=== PATIENT | female | born 1930 | race Caucasian/White ===

== ENCOUNTER 2016-06-22 17:41 | Inpatient (IN) | payer MEDICARE, MEDICAID ==
[~2016-06-22] VITALS: Ht 147.3 cm; Wt 63.5 kg
[~2016-06-22 17:41] MED LIST: ALPR0.5T8 PO; ASPI-605 PO; ATOR10TA PO; CLON0.1T PO; Cephalexin Monohydrate PO; DOCU-170 PO; GABA-532 PO; GLIM2TAB2 PO; HYDR-552 PO; LORA0.5T PO; METF10002 PO; MIRT15TA PO; MULT1TAB64 PO; PANT40TA2 PO; POLY30DR OP; SENN8.6T6 PO; SERT50TA PO; TRAM50TA2 PO
[2016-06-22] MEDS ORDERED: LANTUS INSULIN SQ (17:59)
[2016-06-22] MEDS ORDERED: GUAI5SYR PO (17:59)
[2016-06-22] MEDS ORDERED: AMLO5TAB4 PO (17:59)
[2016-06-22] MEDS ORDERED: LACT1CAP61 PO (17:59)
[2016-06-22] MEDS ORDERED: AMIN30LI27 PO (17:59)
[2016-06-22] MEDS ORDERED: NITROGLYCERIN OINT 1 GM PACKET TP ONE ×2 (18:00→18:14)
[2016-06-22 18:30] LABS: CALCIUM 9.6 mg/dL (8.5-10.1); CREATININE 0.9 mg/dL (0.6-1.3)
--- NOTE | 2016-06-22 18:34 | NUR ---
A/O x 4, vss, nad at this time; report given to BRAYDON Chou, pt to transfer to Tele unit.
[2016-06-22 18:41] LABS: ALBUMIN 3.4 g/dL (3.4-5.0); BILIRUBIN,DIRECT 0.1 mg/dL (0.0-0.2); BILIRUBIN,TOTAL 0.5 mg/dL (0.2-1.0); TOTAL PROTEIN, SERUM 6.8 g/dL (6.4-8.2)
[2016-06-22 18:42] LABS: TROPONIN I 0.024 ng/mL (0.00-0.056)
--- NOTE | 2016-06-22 18:44 | NUR ---
Pt. admitted to 211, under care of Dr. Lo Belongs List completed. MRSA swab done, sent to the lab.
--- NOTE | 2016-06-22 18:54 | NUR ---
NEW ADMISSION TO ROOM 211. PATIENT ALERT, AWAKE AND ORIENTED IN NO ACUTE DISTRESS. VSS. NO C/O PAIN AT THIS TIME. WILL ENDORSE TO NEXT SHIFT RN.
[2016-06-22 18:56] VITALS: BP 125/81
[2016-06-22 18:58] LABS: LACTIC ACID 3.2 mmol/L (0.4-2.0)
[2016-06-22 19:00] VITALS: BP 118/74
--- NOTE | 2016-06-22 19:00 | NUR ---
PATIENT ADMITTED FROM ER UNDER THE CARE OF DR. FERRARO, WITH DX OF CHF, PATIENT ALERT, AWAKE, SPEACK CHINESE, BODY CHECK DONE, SKIN CLEAR, PATIENT ON TELE, SINUS RYTHM WITH BUNDLE BLOCK, NO SOB, NO CHEST PAIN. CONT TO MONITOR.
--- NOTE | 2016-06-22 19:00 | NUR ---
LACTIC ACID 3.2 ENDORSED TO MELQUIADES BRYSON AND GONZALO BRYSON.
[2016-06-22 19:12] LABS: WHITE BLOOD COUNT (AUTO) 5.9 K/uL (4.0-11.2)
[2016-06-22 19:13] LABS: HEMATOCRIT 38.3 % (37.0-47.0); HEMOGLOBIN 12.6 g/dL (12.0-16.0); LYMPHOCYTES % (AUTO) 23.4 % (20.5-51.5); MEAN CORPUSCULAR HEMOGLOBIN 26.1 uug (27.0-31.0); MEAN CORPUSCULAR HGB CONC 33 g/dL (32.0-37.0); MEAN CORPUSCULAR VOLUME 79.6 fL (81.0-99.0); MONOCYTES % (AUTO) 8.9 % (0.0-11.0); NEUTROPHILS % (AUTO) 65.7 % (38.5-71.5); PLATELET COUNT (AUTO) 210 K/uL (150-450); RED BLOOD CELL COUNT(AUTO) 4.81 MIL/uL (4.20-5.40)
[2016-06-22 19:14] LABS: BASOPHILS % (AUTO) 0.6 % (0.0-2.0); EOSINOPHILS # (AUTO) 0.1 K/uL (0.0-0.7); EOSINOPHILS % (AUTO) 1.4 % (0.0-7.0); LYMPHOCYTES # (AUTO) 1.4 K/uL (0.8-4.8); MONOCYTES # (AUTO) 0.5 K/uL (0.1-1.30); NEUTROPHILS # (AUTO) 3.9 K/uL (1.8-8.9)
--- NOTE | 2016-06-22 19:30 | NUR ---
PATIENT LACTIC ACID 3.2 DR GILLIAM NOTFIED WITH ORDERS. NOTIFY THAT PATIENT WAS ADMITTED.
[2016-06-22] MEDS ORDERED: POLYVINYL ALCOHOL OPHT DROPS 15 ML BOTTLE EACHEYE PRN (20:15)
[2016-06-22] MEDS ORDERED: LORAZEPAM 0.5 MG TABLET PO PRN (20:15)
[2016-06-22] MEDS ORDERED: CLONIDINE HCL 0.1 MG TABLET PO PRN (20:15)
[2016-06-22] MEDS ORDERED: GUAIFENESIN/DEXTROMETHORPHAN 5 ML UDC PO PRN (20:15)
[2016-06-22] MEDS ORDERED: DEXTROSE 50% 50 ML DISP.SYRIN IV PRN (21:00)
[2016-06-22] MEDS: ALPRAZOLAM 0.5 MG TABLET PO SCH (21:20)
[2016-06-22] MEDS: ATORVASTATIN 10 MG TABLET PO SCH (21:20)
[2016-06-22] MEDS: SENNOSIDES 1 TABLET PO SCH (21:21)
[2016-06-22] MEDS: SERTRALINE HCL 50 MG TABLET PO SCH (21:21)
[2016-06-22] MEDS: GABAPENTIN 100 MG CAPSULE PO SCH (21:32)
[2016-06-22] MEDS: DOCUSATE SODIUM 100 MG CAPSULE PO SCH (21:32)
--- NOTE | 2016-06-22 21:33 | NUR ---
PLACE CALL TO DR. FERRARO LACTIC ACID OF 2.4 WITH NO NEW ORDER.
[2016-06-22] MEDS: INSULIN REGULAR, HUMAN 300 UNIT/3 ML VIAL SQ PRN (21:57)
[2016-06-22] MEDS: BLOOD SUGAR DIAGNOSTIC 1 EACH STRIP VI SCH (21:57)
[2016-06-23] MEDS ORDERED: TRAMADOL HCL 50 MG TABLET PO PRN
[2016-06-23] MEDS ORDERED: HYDROCODONE/APAP 5-325MG TABLET PO SCH
[2016-06-23 00:01] VITALS: BP 134/80
[2016-06-23 04:00] VITALS: BP 127/80
[2016-06-23] MEDS: BLOOD SUGAR DIAGNOSTIC 1 EACH STRIP VI SCH ×4 (05:51→20:26)
[2016-06-23] MEDS: PANTOPRAZOLE SODIUM 40 MG TABLET.DR PO SCH (06:05)
--- NOTE | 2016-06-23 06:50 | NUR ---
PATIENT ALERT ORIENTED, NO SOB, NO CHEST PAIN NOTED, SLEPT MOST OF THE NIGHT, NO DISTRESS.
[2016-06-23 07:01] LABS: ALBUMIN 3.3 g/dL (3.4-5.0); BILIRUBIN,TOTAL 0.6 mg/dL (0.2-1.0); CALCIUM 9.1 mg/dL (8.5-10.1); CREATININE 0.8 mg/dL (0.6-1.3); PHOSPHOROUS 4.3 mg/dL (2.5-4.9); POTASSIUM 3.4 mmol/L (3.5-5.1); TOTAL PROTEIN, SERUM 6.5 g/dL (6.4-8.2)
[2016-06-23] MEDS: PROTEIN SUPPLEMENT (PROSTAT) 30 ML LIQUID PO SCH (07:57)
[2016-06-23] MEDS: METFORMIN HCL 500 MG TABLET PO SCH ×2 (07:57→17:09)
[2016-06-23] MEDS: DOCUSATE SODIUM 100 MG CAPSULE PO SCH ×2 (08:02→17:10)
[2016-06-23] MEDS: MULTIVIT, IRON, MIN NO. 8, FA TABLET PO SCH (08:02)
[2016-06-23] MEDS: ACIDOPHILUS/BULGARICUS CHEW TAB PO SCH (08:02)
[2016-06-23] MEDS: GABAPENTIN 100 MG CAPSULE PO SCH ×3 (08:03→17:10)
[2016-06-23] MEDS: INSULIN DETEMIR 300 UNIT/3 ML CARTRIDGE SQ SCH (08:07)
[2016-06-23] MEDS ORDERED: Z GUARD REMEDY PASTE 57 GM TUBE TOP PRN (08:30)
[2016-06-23] MEDS ORDERED: AMLODIPINE 5 MG TABLET PO SCH (09:00)
[2016-06-23] MEDS ORDERED: POTASSIUM CHLORIDE 50 ML IV SCH (09:00)
[2016-06-23] MEDS ORDERED: ONDANSETRON 4 MG/2 ML VIAL IV PRN (09:00)
[2016-06-23] MEDS ORDERED: ASPIRIN EC 81 MG TABLET.DR PO SCH (09:00)
[2016-06-23] MEDS ORDERED: GUAIFENESIN/DEXTROMETHORPHAN 5 ML UDC PO PRN (09:28)
[2016-06-23] MEDS ORDERED: HYDROCODONE/APAP 5-325MG TABLET PO PRN (09:28)
[2016-06-23] MEDS ORDERED: POTASSIUM CHLORIDE 20 MEQ TAB.PRT.SR PO ONE (09:30)
[2016-06-23] MEDS: FUROSEMIDE 20 MG/2 ML VIAL IV SCH ×2 (09:38→20:43)
[2016-06-23 11:04] LABS: EOSINOPHILS # (AUTO) 0.1 K/uL (0.0-0.7); EOSINOPHILS % (AUTO) 2.6 % (0.0-7.0); HEMATOCRIT 38.6 % (37.0-47.0); HEMOGLOBIN 12.5 g/dL (12.0-16.0); LYMPHOCYTES # (AUTO) 1.4 K/uL (0.8-4.8); LYMPHOCYTES % (AUTO) 31.6 % (20.5-51.5); MEAN CORPUSCULAR HEMOGLOBIN 26.1 uug (27.0-31.0); MEAN CORPUSCULAR HGB CONC 32 g/dL (32.0-37.0); MEAN CORPUSCULAR VOLUME 80.5 fL (81.0-99.0); MONOCYTES # (AUTO) 0.5 K/uL (0.1-1.30); MONOCYTES % (AUTO) 12.3 % (0.0-11.0); NEUTROPHILS # (AUTO) 2.3 K/uL (1.8-8.9); NEUTROPHILS % (AUTO) 52.5 % (38.5-71.5); PLATELET COUNT (AUTO) 204 K/uL (150-450); RED CELL DISTRIBUTION WIDTH 18.5 % (11.5-14.5); WHITE BLOOD COUNT (AUTO) 4.4 K/uL (4.0-11.2)
[2016-06-23 14:43] VITALS: BP 130/76
[2016-06-23 15:35] VITALS: BP 121/74
[2016-06-23] MEDS: CARVEDILOL 3.125 MG TABLET PO SCH (17:09)
--- NOTE | 2016-06-23 17:50 | NUR ---
PATIENT BEEN SLEEPING THROUGHOUT MY SHIFT. NO S/S OF DISTRESS NOTED, NO C/O OF CHEST PAIN. PATIENT SEEM VERY WEAK AND DEPRESSED, STATING "ME SIENTO RENATA CANSADA" (I'M FEELING SO TIRED"). FEELING NAUSEA IN THE MORNING, MEDICATED ORDERED FOR COMFORT. POOR APPETITE, I ENCOURAGED TO EAT, AT LEAST THE BOOST AND THE SOUP, SHE TOLERATED WELL. IV STILL INTACT. NIECES DOT AND CINDI ARE THE POWER OF COMPUTER PROGRAMMING MANAGER, A COPY WAS PROVIDED TODAY, IT WAS PLACED IN THE CHART. BS CONTROLLED. SAFETY AND COMFORT WAS PROVIDED BY STAFF. WILL CONTINUE MONITORING.
[2016-06-23 18:29] LABS: *BILIRUBIN,URIN NEGATIVE (NEGATIVE); *BLOOD, URINE Trace-lysed (NEGATIVE); *CLARITY,URINE SLIGHTLY CLOUDY (CLEAR); *COLOR,URINE YELLOW (YELLOW); *KETONES,URINE NEGATIVE (NEGATIVE); *PROTEIN,URINE NEGATIVE (NEGATIVE); *UROBILINOGEN,URINE 0.2 E.U./dl (NORMAL); LEUKOCYTE ESTERASE ,URINE 1+ (NEGATIVE); PH,URINE 5.5 (5.0-8.0); UGLUCOSE NEGATIVE (NEGATIVE)
[2016-06-23 18:36] LABS: NITRITE, URINE POSITIVE (NEGATIVE)
[2016-06-23 18:37] LABS: BACTERIA,URINE MANY /HPF (NONE SEEN); WBC,URINE 20-50 /HPF (0-3)
[2016-06-23 18:38] LABS: MUCUS,URINE FEW /LPF (0-FEW); SQUAMOUS EPITHELIAL CELL,UR MANY /HPF (NONE SEEN)
[2016-06-23 19:00] VITALS: BP 119/62
--- NOTE | 2016-06-23 19:00 | NUR ---
PATIENT ALERT ORIENTED, SPEAKS [place] BUT UNDERSTAND [place], NO SOB, NO CHEST PAIN, SINUS RYTHM, OXYGEN SAT WNL, NO DISTRESS.
[2016-06-23] MEDS: INSULIN REGULAR, HUMAN 300 UNIT/3 ML VIAL SQ PRN (20:27)
[2016-06-23] MEDS: SENNOSIDES 1 TABLET PO SCH (20:43)
[2016-06-23] MEDS: ALPRAZOLAM 0.5 MG TABLET PO SCH (20:43)
[2016-06-23] MEDS: ATORVASTATIN 10 MG TABLET PO SCH (20:43)
[2016-06-23] MEDS: SERTRALINE HCL 50 MG TABLET PO SCH (20:51)
[2016-06-23 23:43] VITALS: BP 108/60
[2016-06-24 04:00] VITALS: BP 116/62
--- NOTE | 2016-06-24 04:49 | NUR ---
PATITENT SLEPT MOST OF THE NIGHTS NO SOB, NO CHEST PAIN NOTED, PATIENT ON SINUS RYTHM WITH BUNDLE BLOCK, VOIDING FREELY, NO S/S OF DISTRESS.
[2016-06-24] MEDS: BLOOD SUGAR DIAGNOSTIC 1 EACH STRIP VI SCH ×6 (06:02→20:37)
[2016-06-24] MEDS: PANTOPRAZOLE SODIUM 40 MG TABLET.DR PO SCH (06:02)
[2016-06-24 07:15] LABS: ALBUMIN 3.2 g/dL (3.4-5.0); BILIRUBIN,TOTAL 0.5 mg/dL (0.2-1.0); CREATININE 0.9 mg/dL (0.6-1.3); POTASSIUM 4.4 mmol/L (3.5-5.1); TOTAL PROTEIN, SERUM 6.4 g/dL (6.4-8.2)
[2016-06-24 07:38] LABS: HEMATOCRIT 39.6 % (37.0-47.0); HEMOGLOBIN 12.4 g/dL (12.0-16.0); MEAN CORPUSCULAR HEMOGLOBIN 25.4 uug (27.0-31.0); MEAN CORPUSCULAR HGB CONC 31 g/dL (32.0-37.0); MEAN CORPUSCULAR VOLUME 81.2 fL (81.0-99.0); PLATELET COUNT (AUTO) 188 K/uL (150-450); RED BLOOD CELL COUNT(AUTO) 4.88 MIL/uL (4.20-5.40); RED CELL DISTRIBUTION WIDTH 17.3 % (11.5-14.5)
[2016-06-24] MEDS: BOOST GLUCOSE CONTROL 237 ML LIQUID (VANILLA) PO SCH ×2 (08:00→17:00)
[2016-06-24] MEDS: PROTEIN SUPPLEMENT (PROSTAT) 30 ML LIQUID PO SCH (08:00)
[2016-06-24] MEDS: METFORMIN HCL 500 MG TABLET PO SCH ×2 (09:03→18:07)
[2016-06-24] MEDS: CARVEDILOL 3.125 MG TABLET PO SCH ×2 (09:03→18:07)
[2016-06-24] MEDS: FUROSEMIDE 20 MG/2 ML VIAL IV SCH (09:03)
[2016-06-24] MEDS: ACIDOPHILUS/BULGARICUS CHEW TAB PO SCH (09:04)
[2016-06-24] MEDS: GABAPENTIN 100 MG CAPSULE PO SCH ×3 (09:04→18:05)
[2016-06-24] MEDS: DOCUSATE SODIUM 100 MG CAPSULE PO SCH ×2 (09:04→18:05)
[2016-06-24] MEDS: ASPIRIN EC 81 MG TABLET.DR PO SCH (09:04)
[2016-06-24] MEDS: MULTIVIT, IRON, MIN NO. 8, FA TABLET PO SCH (09:05)
[2016-06-24] MEDS: LISINOPRIL 5 MG TABLET PO SCH (09:05)
[2016-06-24] MEDS: INSULIN DETEMIR 300 UNIT/3 ML CARTRIDGE SQ SCH (09:09)
[2016-06-24 11:03] VITALS: BP 107/67
[2016-06-24 11:21] LABS: BASOPHILS % (AUTO) 0.4 % (0.0-2.0); EOSINOPHILS % (AUTO) 2.1 % (0.0-7.0); LYMPHOCYTES % (AUTO) 24.4 % (20.5-51.5); MONOCYTES % (AUTO) 10.9 % (0.0-11.0); NEUTROPHILS % (AUTO) 62.2 % (38.5-71.5)
[2016-06-24] MEDS: CEFTRIAXONE 1 G in IV DEXTROSE 5% 50 ML IV SCH (12:40)
[2016-06-24 19:00] VITALS: BP 90/59
--- NOTE | 2016-06-24 19:34 | NUR ---
PATIENT ALERT IN BED RESTING NO SOB, NO CHEST PAIN NOTED, CALL LIGHTS WITHIN REACH.
[2016-06-24] MEDS: ATORVASTATIN 10 MG TABLET PO SCH (20:42)
[2016-06-24] MEDS: SENNOSIDES 1 TABLET PO SCH (20:42)
[2016-06-24] MEDS: ALPRAZOLAM 0.5 MG TABLET PO SCH (20:42)
[2016-06-24 21:00] VITALS: BP 110/68
[2016-06-24] MEDS ORDERED: FUROSEMIDE 20 MG/2 ML VIAL IV SCH ×3 (21:00)
[2016-06-24] MEDS ORDERED: FUROSEMIDE 40 MG/4 ML VIAL IV SCH ×2 (21:00)
--- NOTE | 2016-06-24 21:00 | NUR ---
PATIENT BP WAS 90/59 HR 63, RECHECK BP AT THIS TIME 110/68. NO DISTRESS.
[2016-06-24] MEDS: SERTRALINE HCL 50 MG TABLET PO SCH (21:39)
[2016-06-25 00:01] VITALS: BP 90/59
[2016-06-25 04:00] VITALS: BP 106/69
[2016-06-25] MEDS: BLOOD SUGAR DIAGNOSTIC 1 EACH STRIP VI SCH ×4 (05:54→21:54)
[2016-06-25] MEDS: PANTOPRAZOLE SODIUM 40 MG TABLET.DR PO SCH (06:00)
--- NOTE | 2016-06-25 07:00 | NUR ---
PATIENT ALERT ORIENTED, NO SOB NO CHEST PAIN, SINUS RYTHM WITH BUNDLE BRUNCH BLOCK, KEPT CLEAN AND DRY, VOIDING WELL, NO S/S OF DISTRESS.
[2016-06-25] MEDS: METFORMIN HCL 500 MG TABLET PO SCH ×2 (08:58→17:17)
[2016-06-25] MEDS: CARVEDILOL 3.125 MG TABLET PO SCH ×2 (08:58→17:17)
[2016-06-25] MEDS: BOOST GLUCOSE CONTROL 237 ML LIQUID (VANILLA) PO SCH ×2 (08:58→17:14)
[2016-06-25] MEDS: ACIDOPHILUS/BULGARICUS CHEW TAB PO SCH (08:59)
[2016-06-25] MEDS: DOCUSATE SODIUM 100 MG CAPSULE PO SCH ×2 (08:59→17:16)
[2016-06-25] MEDS: PROTEIN SUPPLEMENT (PROSTAT) 30 ML LIQUID PO SCH (08:59)
[2016-06-25] MEDS: ASPIRIN EC 81 MG TABLET.DR PO SCH (08:59)
[2016-06-25] MEDS: MULTIVIT, IRON, MIN NO. 8, FA TABLET PO SCH (08:59)
[2016-06-25] MEDS: GABAPENTIN 100 MG CAPSULE PO SCH ×3 (08:59→17:16)
[2016-06-25] MEDS: LISINOPRIL 5 MG TABLET PO SCH (09:00)
[2016-06-25] MEDS ORDERED: FUROSEMIDE 20 MG TABLET PO SCH (09:00)
[2016-06-25] MEDS: INSULIN DETEMIR 300 UNIT/3 ML CARTRIDGE SQ SCH (10:30)
[2016-06-25 11:19] VITALS: BP 102/58
[2016-06-25] MEDS: CEFTRIAXONE 1 G in IV DEXTROSE 5% 50 ML IV SCH (12:47)
[2016-06-25 15:08] VITALS: BP 100/65
[2016-06-25] MEDS: FUROSEMIDE 20 MG TABLET PO SCH (17:16)
[2016-06-25 20:03] VITALS: BP 109/64
[2016-06-25] MEDS: ALPRAZOLAM 0.5 MG TABLET PO SCH (21:11)
[2016-06-25] MEDS: SENNOSIDES 1 TABLET PO SCH (21:11)
[2016-06-25] MEDS: ATORVASTATIN 10 MG TABLET PO SCH (21:11)
[2016-06-25] MEDS: SERTRALINE HCL 50 MG TABLET PO SCH (21:11)
[2016-06-26 00:20] VITALS: BP 105/69
--- NOTE | 2016-06-26 02:23 | NUR ---
No significant change, kept comfortable. Sinus rhythm on the monitor.
[2016-06-26 04:00] VITALS: BP 127/66
[2016-06-26] MEDS: PANTOPRAZOLE SODIUM 40 MG TABLET.DR PO SCH (05:45)
[2016-06-26] MEDS: BLOOD SUGAR DIAGNOSTIC 1 EACH STRIP VI SCH ×2 (06:01→12:14)
[2016-06-26 07:04] LABS: CREATININE 0.9 mg/dL (0.6-1.3); PHOSPHOROUS 4.2 mg/dL (2.5-4.9); POTASSIUM 3.7 mmol/L (3.5-5.1)
--- NOTE | 2016-06-26 07:04 | NUR ---
Current blood sugar is 57. Patient awake & alert but refused orange juice. D50 1 amp IVP administered. Will continue to monitor. Sinus rhythm w/ BBB on the monitor.
[2016-06-26 07:31] LABS: HEMATOCRIT 37.8 % (37.0-47.0); HEMOGLOBIN 12.1 g/dL (12.0-16.0); MEAN CORPUSCULAR HEMOGLOBIN 25.9 uug (27.0-31.0); MEAN CORPUSCULAR HGB CONC 32 g/dL (32.0-37.0); PLATELET COUNT (AUTO) 184 K/uL (150-450); RED BLOOD CELL COUNT(AUTO) 4.67 MIL/uL (4.20-5.40); RED CELL DISTRIBUTION WIDTH 17.6 % (11.5-14.5)
[2016-06-26 07:47] LABS: WHITE BLOOD COUNT (AUTO) 4.6 K/uL (4.0-11.2)
[2016-06-26] MEDS: DOCUSATE SODIUM 100 MG CAPSULE PO SCH (09:10)
[2016-06-26] MEDS: GABAPENTIN 100 MG CAPSULE PO SCH ×2 (09:11→12:18)
[2016-06-26] MEDS: FUROSEMIDE 20 MG TABLET PO SCH (09:11)
[2016-06-26] MEDS: ACIDOPHILUS/BULGARICUS CHEW TAB PO SCH (09:11)
[2016-06-26] MEDS: METFORMIN HCL 500 MG TABLET PO SCH (09:12)
[2016-06-26] MEDS: MULTIVIT, IRON, MIN NO. 8, FA TABLET PO SCH (09:12)
[2016-06-26] MEDS: ASPIRIN EC 81 MG TABLET.DR PO SCH (09:13)
[2016-06-26] MEDS: LISINOPRIL 5 MG TABLET PO SCH (09:13)
[2016-06-26] MEDS: PROTEIN SUPPLEMENT (PROSTAT) 30 ML LIQUID PO SCH (09:14)
[2016-06-26] MEDS: CARVEDILOL 3.125 MG TABLET PO SCH (09:15)
[2016-06-26] MEDS: INSULIN DETEMIR 300 UNIT/3 ML CARTRIDGE SQ SCH (09:16)
[2016-06-26] MEDS: BOOST GLUCOSE CONTROL 237 ML LIQUID (VANILLA) PO SCH (09:25)
[2016-06-26 10:17] LABS: EOSINOPHILS % (MANUAL) 1 % (0-8); LYMPHOCYTES % (MANUAL) 24 % (20-40); MONOCYTES % (MANUAL) 10 % (2-10); NEUTROPHILS % (MANUAL) 65 % (42-75)
[2016-06-26 10:18] LABS: ANISOCYTOSIS 1+; HYPOCHROMASIA 1+; PLATELET ESTIMATE ADEQUATE
[2016-06-26 10:19] LABS: OVALOCYTES 1+
[2016-06-26] MEDS ORDERED: Furosemide PO (11:01)
[2016-06-26] MEDS ORDERED: CARV3.122 PO (11:01)
[2016-06-26] MEDS ORDERED: Guaifenesin/D-Methorphan Hb PO (11:01)
[2016-06-26] MEDS ORDERED: CEFT1VIA15 IV (11:01)
[2016-06-26 11:02] VITALS: BP 124/83
[2016-06-26] MEDS: CEFTRIAXONE 1 G in IV DEXTROSE 5% 50 ML IV SCH (12:15)
--- NOTE | 2016-06-26 14:00 | NUR ---
The patient will be discharged today to [facility] [ ; [address] [place] [address]] via [facility]. Spoke to her daughters, Maria Del Carmen Prince [ ] and Blanka Newsome [ ], and they are in agreement with the discharge. Also informed Gladys and Foster from [facility] about the discharge. Erinn from [facility] confirmed that they will admit the patient today. Her RN, [place], is aware of her discharge plan and will call the facility for the report.
[2016-06-26 15:09] VITALS: BP 123/76
--- NOTE | 2016-06-26 15:30 | NUR ---
Pt is in no acute distress. Discharge instructions handouts given with pt to send to [facility] set up by Shani blackburn. Family aware of transfer per case management. Report given to Chaim BRYSON and EMT. Kept IV for rocephin to be continued at the SNF facillity.
== END 2016-06-26 15:45 | DRG 291 ==
LOC: ER 17:43 → TELE 18:37
PROVIDERS: ADMIT Internal Medicine; ATTEND Internal Medicine
DX: I11.0 Hypertensive heart disease with heart failure (principal); J15.9 Unspecified bacterial pneumonia; N39.0 Urinary tract infection, site not specified; I42.9 Cardiomyopathy, unspecified; E11.9 Type 2 diabetes mellitus without complications; E78.5 Hyperlipidemia, unspecified; R62.7 Adult failure to thrive; I50.21 Acute systolic (congestive) heart failure; F03.90 Unspecified dementia, unspecified severity, without behavioral disturbance, psychotic disturbance, mood disturbance, and anxiety; B96.20 Unspecified Escherichia coli [E. coli] as the cause of diseases classified elsewhere; F17.210 Nicotine dependence, cigarettes, uncomplicated; I25.10 Atherosclerotic heart disease of native coronary artery without angina pectoris; I27.2 Other secondary pulmonary hypertension; Z79.84 Long term (current) use of oral hypoglycemic drugs; Z79.4 Long term (current) use of insulin; I35.0 Nonrheumatic aortic (valve) stenosis; I34.0 Nonrheumatic mitral (valve) insufficiency; I34.1 Nonrheumatic mitral (valve) prolapse; I36.1 Nonrheumatic tricuspid (valve) insufficiency; I25.9 Chronic ischemic heart disease, unspecified
CPT/HCPCS: 36415; 70030-TC; 71010; 83605; 83735; 84100; 85025; 85730; 87040; 87077; 87086; 92506; 93005; 97001; 97003; A4663; J0696; J1815; J1940; J2405; J3490; J7050; J7060